=== PATIENT | female | born 1985 | race Caucasian/White ===

== ENCOUNTER 2024-04-30 10:56 | Emergency (ER) | payer SELFPAY ==
[2024-04-30 10:57] VITALS: BP 135/79
--- NOTE | 2024-04-30 11:27 | ED.GENMED ---
History of Present Illness
General
Chief Complaint: Dental Problem
Source: patient
Exam Limitations: none
Time Seen by Provider: 04/30/24 11:10
History of Present Illness
History of Present Illness:
38-year-old female presents with about a weeks worth of worsening right upper dental pain. There is no associated obvious swelling fevers or chills. She has tried ibuprofen and Tylenol. She tried covering the tooth with a tissue. She believes
her wisdom tooth broke. She is trying to get into an oral surgeon and dentist but is unable to get an appointment until next week. She denies chest pain or shortness of breath.
Past History
Past History
ED Past Medical History: None
ED Past Surgical History:
Social History
Tobacco: Smoker
Alcohol: None
Drug: None
Living: with family
Employment: Employed
Family History
Family History: Other (Noncontributory)
Phy Exam
Physical Exam
Physical Exam:
General: Uncomfortable appearing female no acute respiratory distress
HEENT: Normocephalic atraumatic. Dentition appears well overall however there does seem to be a fracture of the right maxillary third molar. Mild gingival inflammation surrounding this. No obvious swelling. Posterior pharynx is patent no trismus
or drooling
Heart: Regular rate and rhythm no murmurs
Lungs: Clear no rales
Course
Vital Signs
Initial and Last Documented VS:
Initial Vital Signs
Temp Pulse Resp BP Pulse Ox
98.3 F 73 18 135/79 98
04/30/24 10:57 04/30/24 10:57 04/30/24 10:57 04/30/24 10:57 04/30/24 10:57
Last Documented Vital Signs
Temp Pulse Resp BP Pulse Ox
98.3 F 73 18 135/79 98
04/30/24 10:57 04/30/24 10:57 04/30/24 10:57 04/30/24 10:57 04/30/24 10:57
MDM/Problems Addressed
Differential Diagnosis Includes:
Significant dental pain. There is a fractured tooth. Question underlying infection. No obvious abscess to drain. For pain relief immediately patient was given a block using 1% lidocaine with epinephrine and 0.5% Marcaine. Will plan on
prescribing antibiotics.
*Critical Care Note
Total Time (30-74mins, 75-104mins- exclusive of procedures): Not Applicable
Update Note
Update Note:
Patient did have relief of her pain after the block. Will prescribe penicillin for further treatment. Stable for discharge with follow-up with dentist
ED Attending Note
-
Portions of this chart may have been created with voice recognition software.� Occasional wrong word or��sound alike� substitutions may have occurred due to the inherent limitations of voice recognition software.
Discharge Plan
Departure
Patient Disposition: Home (Routine Discharge)
Date of Disposition: 04/30/24
Time of Disposition: 12:59
Patient with high blood pressure during this ER visit?: No
Discharge Problem:
Pain, dental
Instructions: Dental Pain (DC)
Prescriptions:
New
penicillin V potassium 500 mg tablet
500 mg PO QID Qty: 28 0RF
No Action
tranexamic acid [Lysteda] 650 MG tablet
1,300 mg PO TID Qty: 30 0RF
Referrals:
NONE,* [Family Provider] -
Activity Restrictions/Additional Instructions:
Continue with ibuprofen or Tylenol. Use antibiotics as directed. Use warm salt water rinses. Return if worse otherwise follow-up with dentist.
Interventions
Interventions:
*Risk Screen - Suicide Last Done: 04/30/24 10:57
*General Assessment Last Done: 04/30/24 10:57
*Neglect/Abuse Screening Last Done: 04/30/24 10:57
Discharge Date and Time
Print Language: SAMOAN
== END 2024-04-30 13:41 | disposition home or self-care (01) ==
LOC: EMR 10:56
PROVIDERS: EMERGENCY PHYSICIAN Emergency Medicine
DX: K08.89 Other specified disorders of teeth and supporting structures (principal); F17.200 Nicotine dependence, unspecified, uncomplicated
CPT/HCPCS: 99284; 64400